=== PATIENT | female | born 1990 | race Caucasian/White ===

== ENCOUNTER → 2020-09-20 08:59 | Outpatient (CLI) | payer BC, SELFPAY ==
--- NOTE | ~2020-09-20 | US_ITS ---
EXAMINATION: US breast RT limited HISTORY: Palpable lump at the 6:00 location of the right breast TECHNIQUE: Limited right breast ultrasound is performed in the area of clinical concern. FINDINGS: There is no evidence of focal abnormal cystic or solid mass in the vicinity of the reported palpable abnormality of concern. IMPRESSION: No specific sonographic correlate is identified for the reported palpable abnormality of concern. Fur ther evaluation at this time should be based on clinical assessment. Continued follow-up physical exa mination is recommended. BI-RADS Category 1: Negative Reviewed, dictated and finalized at location A. IMPRESSION: No specific sonographic correlate is identified for the reported palpable abnor mality of concern. Further evaluation at this time should be based on clinical assessment. Continued follow-up physical examination is recommended. BI-RADS Category 1: Negative
== END ==
PROVIDERS: Visit Provider Nurse Practitioner
DX: N64.59 Other signs and symptoms in breast (principal)
CPT/HCPCS: 76642

== ENCOUNTER → 2021-06-30 08:42 | Outpatient (CLI) | payer BC, SELFPAY ==
--- NOTE | ~2021-06-30 | MMUS_ITS ---
EXAMINATION: MM diagnostic robe BI w kecia, US breast BI complete HISTORY: TECHNIQUE: ML, MLO and CC 3-D tomosynthesis images of both breasts and spot 3-D Tomosynthesis images of right breast were performed and synthetic 2-D images were generated. CAD analysis was submitted an d interpreted. High resolution breast ultrasound was performed. COMPARISON: 09/20/2020 Limited right breast ultrasound examination, reported negative BREAST PARENCHYMAL COMPOSITION: The breasts are heterogeneously dense, which may obscure small masses . FINDINGS: MAMMOGRAPHIC FINDINGS: No suspicious mass or architectural distortion, malignant calcification, skin thickening or retractio n is detected. ULTRASOUND: No suspicious mass or shadowing of either breast is noted. Right breast 1:00 2 cm from nipple: Parallel circumscribed hypoechoic lesion measuring 5.4 x 2.4 x 5. 6 cm, without posterior shadowing. IMPRESSION: 1. No mammographic evidence of malignancy 2. Routine mammographic screening is recommended. BI-RADS Category 2: Benign finding(s). Reviewed, dictated and finalized at location A. IMPRESSION: 1. No mammographic evidence of malignancy 2. Routine mammographic screening is recommended. BI-RADS Category 2: Benign finding(s).
== END ==
PROVIDERS: PCP Internal Medicine; Visit Provider Nurse Practitioner
DX: N63.12 Unspecified lump in the right breast, upper inner quadrant (principal)
CPT/HCPCS: 76641; 77062; 77066; G0279